=== PATIENT | male | born 1975 | race Caucasian/White ===

== ENCOUNTER 2021-06-29 13:35 | Emergency (ER) | payer OTHER ==
[~2021-06-29] VITALS: Ht 162.6 cm; Wt 68.0 kg
== END 2021-06-29 17:26 | disposition left against medical advice (07) ==
LOC: ER 13:35
DX: Z53.21 Procedure and treatment not carried out due to patient leaving prior to being seen by health care provider (principal)

== ENCOUNTER 2022-03-10 23:46 | Emergency (ER) | payer OTHER ==
[~2022-03-10] VITALS: Ht 162.6 cm; Wt 63.5 kg
[2022-03-11] MEDS ORDERED: PEPCID40 MG PO (05:46)
[2022-03-11] MEDS ORDERED: ONDANSETRON ODT8 MG PO (05:46)
== END 2022-03-11 05:48 ==
LOC: ER 23:46
DX: R10.13 Epigastric pain (principal); R11.0 Nausea